=== PATIENT | male | born 1945 | race Caucasian/White ===

== ENCOUNTER 2018-08-23 21:27 | Inpatient (IN) | payer MEDICARE, OTHER ==
[~2018-08-23] VITALS: Ht 190.5 cm; Wt 151.2 kg
[~2018-08-23 21:27] MED LIST changes: -ATOR40TA24 PO; -CALC500T6 PO; -CITA-157 PO; -COLC1TAB5 PO; -CYAN100017 PO; -DOCU-416 PO; -FURO-47 PO; -GABA-492 PO; -GLIP-152 PO; -MAGN27TA6 PO; -METF-452 PO; -MULT-1335 PO; -PRAZ1CAP26 PO; -PRED-420 PO; -SPIR25TA80 PO; -TOPI50TA92 PO; -WARF5TAB23 PO
[2018-08-23] MEDS ORDERED: ACETAMINOPHEN(*)1000 MG/100 ML 100 ML IVPB ONE (21:35)
[2018-08-23] MEDS ORDERED: NS(*) 0.9% 1000 ML BAG 1,000 ML IV ONE ×2 (21:35→22:25)
[2018-08-23] MEDS ORDERED: CEFEPIME HCL 1 GM VIAL IVP ONE ×2 (21:35→21:45)
[2018-08-23] MEDS ORDERED: INSU HUM REG 100 U/ML(ER ONLY) 10 ML VIAL IV ONE (21:40)
[2018-08-23] MEDS ORDERED: ALBUTEROL/IPRATROPIUM 3 ML NEB NEB ONE (21:45)
[2018-08-23 21:46] LABS: PLATELET COUNT, AUTOMATED 248 K/uL (150-450)
[2018-08-23] MEDS ORDERED: ALBUTEROL/IPRATROPIUM 3 ML NEB ONE (21:47)
[2018-08-23] MEDS ORDERED: CEFEPIME HCL 1 GM VIAL ONE (21:48)
[2018-08-23 21:57] LABS: INR 1.91
--- NOTE | 2018-08-23 21:58 | EKG ---
FACILITY: [facility] PATIENT NAME: HUNTER KENNEDY : [id number] MR: [id number] V: [id number] EXAM DATE: ORDERING PHYSICIAN: TRINH SWAN TECHNOLOGIST: LANI Test Reason : SOB Blood Pressure : / mmHG Vent. Rate : 096 BPM Atrial Rate : 096 BPM P-R Int : 172 ms QRS Dur : 100 ms QT Int : 364 ms P-R-T Axes : 014 078 036 degrees QTc Int : 459 ms Sinus rhythm Nonspecific interventricular conduction delay Artifact in several leads - repeat if needed Borderline ECG No previous ECGs available Confirmed by SUZANNE CHUN ([id number]) on 08/23/2018 10:10:13 PM Referred By: Confirmed By:SUZANNE CHUN
--- NOTE | 2018-08-23 21:58 | RADIOLOGY IMAGING REPORT ---
FACILITY: [facility] PATIENT NAME: Reinaldo Workman : 1945 MR: [id number] V: [id number] EXAM DATE: ORDERING PHYSICIAN: TRINH SWAN TECHNOLOGIST: Location: [facility] [place] Patient: Reinaldo Workman : 1945 Visit/Account:[id number] Date of Sevice: 08/23/2018 CHEST SINGLE AP Indication: Shortness of breath.. Comparison: CT chest on 07/01/2017. Findings: Cardiac silhouette is upper limits normal for size and inspiration. The mediastinal silhouette and pu lmonary vessels within normal limits. There appears to be some mild prominent pericardial fat as seen on the CT scan. Scarring seen in the right lower lobe. No focal areas of consolidation. No pneumothorax or pleural effusion. No nodule. Upper abdomen is unremarkable with eventration right hemidiaphragm. No acute bony abnormal ity. IMPRESSION: 1. No acute cardiopulmonary process. Report Dictated By: Daniel Loyola at 08/23/2018 9:52 PM Report E-Signed By: Daniel Loyola at 08/23/2018 9:55 PM WSN:[id number]
[2018-08-23] MEDS ORDERED: IOPAMIDOL 76% 50 ML INFUS BTL 0 ML ONE (22:37)
[2018-08-23] MEDS ORDERED: NS(*) 0.9% 50 ML BAG 0 ML ONE (22:38)
[2018-08-23 23:15] VITALS: BP 111/57
[2018-08-23 23:30] VITALS: BP 115/73
[2018-08-23] MEDS ORDERED: INFLUENZA VIRUS VAC 0.5ML SYR IM ONLY ONE (23:50)
[2018-08-24] VITALS (24 sets, daily range): BP systolic 103–160; BP diastolic 47–84; Ht 190.5 cm; Wt 151.2 kg
--- NOTE | 2018-08-24 00:09 | History & Physical ---
History of Present Illness Chief Complaint "Confused and sleepy" History of Present Illness 72yo male with PMHx significant for type 2 DM, chronic lung disease, tobacco use/abuse, sleep apnea (untreated), DVT/PE, HTN. His reports he has been having increasing cough, dyspnea, "trouble breathing", and confusion over the past several days. He has been noted to have some fever as well. He has not been able to do much for himself recently. He has not been eating/drinking normally. He is still smoking, but "trying to cut down". He was evaluated in the ER and found to be confused, hypoxic, hypercapnic and recommended for admission. He was placed on BiPAP in the ER and has improved with respect to his level of awareness. He is now awake and more alert. He is able to follow some simple commands and answer questions. History Problems: (1) CELESTE (obstructive sleep apnea) Status: Chronic (2) HTN (hypertension) Status: Chronic (3) Type 2 diabetes mellitus Status: Chronic (4) Tobacco dependence Status: Chronic (5) Chronic lung disease Status: Chronic (6) DVT (deep venous thrombosis) Status: Chronic Home Meds Reported Medications Cephalexin Monohydrate (Keflex) 250 Mg Cap, 250 MG PO QID, #20 0 Refills 03/14/11 Colchicine (Colchicine) 0.6 Mg Tab, 0.6 MG PO QDAY, #20 0 Refills 03/14/11 [place]-3 Fatty Acids (Fish Oil) 1 Cap Capsule, 1 CAP PO, 0 Refills 03/14/11 Furosemide (Lasix) 20 Mg Tablet, 20 MG PO QDAY, 0 Refills 03/14/11 Acetaminophen (Acetaminophen Pain Relief) 500 Mg Tablet, 500 MG PO PRN 03/14/11 Warfarin Sod (Coumadin (Or Equiv)) 5 Mg Tab, 7 MG PO 7.5 MG 6 DAYS A WEEK. 5 MG WEDS 03/14/11 Citalopram Hydrobromide (Celexa) 20 Mg Tab, 40 MG PO 1/2 TAB IN MORNING AND EVENING 03/14/11 Lisinopril (Prinivil) 20 Mg Tab, 20 MG PO QDAY, #20 0 Refills 03/14/11 Metformin Hcl (Glucophage) 1,000 Mg Tablet, 1000 MG PO QDAY 8/13/11 Simvastatin (Zocor) 80 Mg Tablet, 40 MG PO QHS 03/14/11 Topiramate (Topamax) 25 Mg Tablet, 50 MG PO BID 2 TABS TWICE DAILY 03/14/11 Allergies: Coded Allergies: Preservative (Verified Allergy, Mild, PRESERATIVE IN PLASMA CAUSES SWELLING AND ITCHING, 08/23/18) Hx Smoking: Yes Smoking Status: Current: Every Day Smoker Caffeine Intake: Coffee Caffeine/Cups Per Day: 3 CUPS/DAY Hx Substance Use Disorder: No History of IV Drug Use: No Review of Systems Constitutional: Fever Neurological: Confusion, Weakness Cardiovascular: No Chest Pain Respiratory: Shortness of Breath, Cough Gastrointestinal: No Nausea, No Vomiting, No Diarrhea Exam Vital Signs Vital Signs Date Time Temp Pulse Resp B/P (MAP) Pulse Ox O2 Delivery O2 Flow Rate FiO2 08/23/18 23:26 86 08/23/18 22:57 14 134/70 (91) 97 08/23/18 22:31 101.2 08/23/18 22:17 Bi-PAP 40.0 08/23/18 21:55 10.0 General Appearance: Awake (answers questions and follows simple commands) Neuro: Other (moves all four extremities) Eyes: PERRLA ENT: Oropharynx Clear, Other (dentures) Neck: Other (short/thick/martinez) Cardiovascular: Regular Rate and Rhythm (distant tones) Respiratory: Other (diminished breath sounds bilaterally with soft expiratory wheeze) Chest: No Tenderness GI: Abd Soft and Non-Tender (obese) Extremities: Warm, Perfused, Edema (1+ both LE/few small excoriations) Medical Decision Making Data Points Result Diagram: 08/23/18213508/23/182135 Item Value Date Time Activated Partial Thromboplast Time 41 seconds H 08/23/182135 Prothromb Time International Ratio 1.91 08/23/182135 Prothrombin Time 22.2 seconds H 08/23/182135 Influenza Virus Type B (PCR) Negative 08/23/182212 Influenza Virus Type A (PCR) Negative 08/23/182212 Acetone, Qualitative Negative 08/23/182135 Urine Mucus None /HPF 08/23/182199 Urine Hyaline Casts Few /LPF 08/23/182199 Urine Bacteria Negative /HPF 08/23/182199 Urine Squamous Epithelial Cells Few /LPF 08/23/182199 Urine WBC None /HPF 08/23/182199 Urine RBC 1 /HPF 08/23/182199 Urine Leukocyte Esterase Negative 08/23/182199 Urine Urobilinogen Negative mg/dL 08/23/182199 Urine Bilirubin Negative 08/23/182199 Urine Nitrite Negative 08/23/182199 Urine Blood Negative 08/23/182199 Urine Ketones Negative mg/dL 08/23/182199 Urine Glucose (UA) 50 mg/dL H 08/23/182199 Urine Protein Negative mg/dL 08/23/182199 Urine Specific [place] 1.012 08/23/182199 Urine pH 6.0 pH 08/23/182199 Urine Clarity Clear 08/23/182199 Urine Color Yellow 08/23/182199 Troponin I < 0.012 ng/ml 08/23/182135 Albumin 3.8 g/dl 08/23/182135 Total Protein 7.0 g/dl 08/23/182135 Alkaline Phosphatase 88 U/L 08/23/18 2136 Alanine Aminotransferase (ALT/SGPT) 29 U/L 08/23/18 2136 Total Bilirubin 0.2 mg/dl 08/23/18 2136 Aspartate Amino Transf (AST/SGOT) 18 U/L 08/23/18 213 Calcium Level 9.2 mg/dl 08/23/186 Lactate 1.2 mmol/L 08/23/182135 Blood Gas Puncture Site Right radial 08/23/182149 Blood Gas Patient Temperature 98.7 DEGREES 08/23/182149 Arterial Blood pH 7.25 L 08/23/182149 Arterial Blood Partial Pressure CO2 70 mmHg *H 08/23/182149 Arterial Blood Partial Pressure O2 123 mmHg *H 08/23/182149 Arterial Blood HCO3 31 mmol/L H 08/23/182149 Arterial Blood Oxygen Saturation 98 % 08/23/182149 Arterial Blood Base Excess 4.0 mmol/L 08/23/182149 Rey Test Acceptable 08/23/182149 Oxygen Liters/Minute 10 l 08/23/182149 EKG / Imaging EKG Interpretation PATIENT NAME: HUNTER KENNEDY : [id number] MR: [id number] V: [id number] EXAM DATE: ORDERING PHYSICIAN: TRINH SWAN TECHNOLOGIST: LANI Test Reason : SOB Blood Pressure : / mmHG Vent. Rate : 096 BPM Atrial Rate : 096 BPM P-R Int : 172 ms QRS Dur : 100 ms QT Int : 364 ms P-R-T Axes : 014 078 036 degrees QTc Int : 459 ms Sinus rhythm Nonspecific interventricular conduction delay Artifact in several leads - repeat if needed Borderline ECG No previous ECGs available Confirmed by SUZANNE CHUN ([id number]) on 08/23/2018 10:10:13 PM Referred By: Confirmed By:SUZANNE CHUN Imaging PATIENT NAME: Hunter Kennedy : 1945 MR: [id number] V: [id number] EXAM DATE: ORDERING PHYSICIAN: TRINH SWAN TECHNOLOGIST: Location: [facility] Patient: Hunter Kennedy : 1945 Visit/Account:[id number] Date of Sevice: 08/23/2018 CHEST SINGLE AP Indication: Shortness of breath.. Comparison: CT chest on 07/01/2017. Findings: Cardiac silhouette is upper limits normal for size and inspiration. The mediastinal silhouette and pulmonary vessels within normal limits. There appears to be some mild prominent pericardial fat as seen on the CT scan. Scarring seen in the right lower lobe. No focal areas of consolidation. No pneumothorax or pleural effusion. No nodule. Upper abdomen is unremarkable with eventration right hemidiaphragm. No acute bony abnormality. IMPRESSION: 1. No acute cardiopulmonary process. Report Dictated By: Daniel Loyola at 08/23/2018 9:52 PM Report E-Signed By: Daniel Loyola at 08/23/2018 9:55 PM WSN:[id number] Assessment and Plan Problems: (1) Hypercapnic respiratory failure Status: Acute Assessment & Plan: He most likely has fairly significant CELESTE/hypoventilation syndrome with acute hypercapnic respiratory failure. He has responded well to the BiPAP thus far. Will admit to the ICU for further evaluation and treatment. His CXR is of poor quality, but no obvious infiltrate was noted. He has had some fever with borderline elevated WBC count. Will continue the IV cefepime for the possibility of an acute respiratory infection. Will continue BiPAP and watch ABGs. Continue respiratory treatments. We also discussed need for tobacco cessation. (2) DVT (deep venous thrombosis) Status: Chronic Assessment & Plan: He is on chronic warfarin therapy. [facility] to get [facility] dosage and continue his usual regimen. Watch INR. (3) Type 2 diabetes mellitus Status: Chronic Assessment & Plan: He has been managed with metformin. Will hold it for now, monitor glucoses, and use SSI as needed. (4) CELESTE (obstructive sleep apnea) Status: Chronic Assessment & Plan: It sounds like he was evaluated and recommended to use CPAP/BiPAP, but he has never used it. I discussed the importance of appropriately treating his sleep apnea. Will see if can get records. (5) Tobacco dependence Status: Chronic Assessment & Plan: Discussed need to stop smoking with the patient and his . (6) HTN (hypertension) Status: Chronic Assessment & Plan: He has been managed with lisinopril. Will hold it for now, watch BPs, and resume medication as needed. Copies to: CORNEL DELGADO DO ; Venous Thromboembolism Antithrombotics Is Pt On Any Antithrombotics?: Yes Exam Sepsis Risk: No Definite Risk Problem Qualifiers (1) Hypercapnic respiratory failure: Chronicity: acute on chronic Qualified Codes: J96.22 - Acute and chronic respiratory failure with hypercapnia SUZANNE CHUN MD Aug 24, 2018 00:09
[2018-08-24] MEDS: ALBUTEROL/IPRATROPIUM 3 ML NEB NEB SCH ×5 (00:33→23:32)
[2018-08-24] MEDS: methylPREDNIS SUCC 125 MG/2ML IVP SCH ×3 (01:47→20:23)
[2018-08-24] MEDS: INSULIN HUM LISPRO 100 UN/ML 3 ML VIAL SUBQ PRN ×5 (01:47→20:27)
[2018-08-24 05:16] LABS: PLATELET COUNT, AUTOMATED 216 K/uL (150-450)
[2018-08-24 05:18] LABS: INR 1.74
--- NOTE | 2018-08-24 07:31 | RADIOLOGY IMAGING REPORT ---
FACILITY: [facility] - [place] PATIENT NAME: Reinaldo Workman : 1945 MR: [id number] V: [id number] EXAM DATE: ORDERING PHYSICIAN: SUZANNE CHUN TECHNOLOGIST: Location: [facility] Patient: Reinaldo Workman : 1945 Visit/Account:[id number] Date of Sevice: 08/24/2018 EXAMINATION: Portable AP Chest 08/24/2018 7:00 AM HISTORY: respiratory failure COMPARISON: 08/23/2018 FINDINGS: Cardiomediastinal contours: Stable heart size. Atherosclerotic aorta. Likely granulomatous hilar calc ifications. Lungs and pleura: Stable vascular and reticular markings. Stable thickening along the right minor fis sure. No definite effusion. Bones/soft tissues: Stable elevation right hemidiaphragm. Cardiac leads are present. IMPRESSION: Essentially stable portable chest. Report Dictated By: Anish Styles MD at 08/24/2018 7:26 AM Report E-Signed By: Anish Styles MD at 08/24/2018 7:27 AM WSN:[id number]
[2018-08-24] MEDS: NS(*) 0.9% 1000 ML BAG 1,000 ML IV PRN (08:44)
[2018-08-24] MEDS: CEFEPIME HCL 2 GM VIAL IVP SCH ×2 (08:59→20:22)
[2018-08-24] MEDS ORDERED: ENOXAPARIN 40 MG/0.4ML SYR SC SCH (09:00)
[2018-08-24] MEDS ORDERED: ATOR40TA24 PO (10:00)
[2018-08-24] MEDS ORDERED: FURO-47 PO (10:00)
[2018-08-24] MEDS ORDERED: COLC1TAB5 PO (10:00)
[2018-08-24] MEDS ORDERED: MULT-1335 PO (10:00)
[2018-08-24] MEDS ORDERED: PRAZ1CAP26 PO ×2 (10:00)
[2018-08-24] MEDS ORDERED: METF-452 PO (10:00)
[2018-08-24] MEDS ORDERED: SPIR25TA80 PO (10:00)
[2018-08-24] MEDS ORDERED: GLIP-152 PO (10:00)
[2018-08-24] MEDS ORDERED: GABA-492 PO (10:00)
[2018-08-24] MEDS ORDERED: WARF5TAB23 PO ×2 (10:00)
[2018-08-24] MEDS ORDERED: DOCU-416 PO (10:00)
[2018-08-24] MEDS ORDERED: MAGN27TA6 PO (10:00)
[2018-08-24] MEDS ORDERED: CALC500T6 PO (10:00)
[2018-08-24] MEDS ORDERED: CITA-157 PO (10:00)
[2018-08-24] MEDS ORDERED: CYAN100017 PO (10:00)
[2018-08-24] MEDS ORDERED: TOPI50TA92 PO (10:06)
[2018-08-24] MEDS: WARFARIN SOD 7.5 MG TAB PO SCH (15:16)
[2018-08-25] VITALS (20 sets, daily range): BP systolic 109–137; BP diastolic 55–111
--- NOTE | 2018-08-25 02:52 | ER Report ---
History and Physical Time Seen By MD: 21:15 Hx. of Stated Complaint: pm, ALOC since about 3pm today, temp of 102.5 on ambulance, breathing treatment, low 80's o2 at time of ems arrival. HPI/ROS CHIEF COMPLAINT: Altered level of consciousness since approximately 1500 HISTORY OF PRESENT ILLNESS: Patient is a 72-year-old male here with complaints of altered mental status since approximately 1500. Patient was also noted to be febrile at 102.5. Patient was also noted to have low oxygen saturations in the low 80s at time of EMS evaluation. Patient was reportedly complaining of fatigue, subjective fevers and past several days. He does have a history significant for chronic lung disease, diabetes. REVIEW OF SYSTEMS: Constitutional: + fever, chills. Eyes: No discharge. ENT: No sore throat. Cardiovascular: No chest pain, no palpitations. Respiratory: + cough, + shortness of breath. Gastrointestinal: No abdominal pain, no vomiting. Genitourinary: No hematuria. Musculoskeletal: No back pain. Skin: No rashes. Neurological: + Confusion, somnolence Allergies: Coded Allergies: Preservative (Verified Allergy, Mild, PRESERATIVE IN PLASMA CAUSES SWELLING AND ITCHING, 08/23/18) Home Meds Reported Medications Topiramate (TOPIRAMATE) 50 Mg Tablet, 50 MG PO DAILY 08/24/18 Multivitamin With Minerals (MULTIPLE VITAMIN) 1 Each Tablet, 1 EACH PO DAILY, TAB 08/24/18 Calcium Carbonate (CALCIUM) Unknown Strength Tablet, PO DAILY 08/24/18 Magnesium Amino Acid Chelate (MAGNESIUM) Unknown Strength Tablet, PO DAILY 08/24/18 Cyanocobalamin (Vitamin B-12) (B-12) Unknown Strength Tablet, PO DAILY 08/24/18 Prazosin Hcl (PRAZOSIN HCL) 1 Mg Capsule, 3 MG PO QHS, CAPSULE Take 1 mg by mouth in the morning and 3 mg by mouth in the evening 08/24/18 Warfarin Sodium (WARFARIN SODIUM) 5 Mg Tablet, 10 MG PO SuTuSa, TAB 08/24/18 Warfarin Sodium (WARFARIN SODIUM) 5 Mg Tablet, 7.5 MG PO MoWeThFr, TAB Take 10 mg on Tues, Sat, Sun, and 7.5mg the rest of the week 08/24/18 Furosemide (FUROSEMIDE) 40 Mg Tablet, 1 TAB PO DAILY, TAB 08/24/18 Colchicine/Probenecid (PROBENECID-COLCHICINE TABS) 1 Each Tablet, 1 EACH PO QHS 08/24/18 Atorvastatin Calcium (LIPITOR) 40 Mg Tablet, 1 TAB PO QHS, TAB 08/24/18 Docusate Sodium (COLACE) 100 Mg Capsule, 100 MG PO BID, CAPSULE 08/24/18 Citalopram Hydrobromide (CELEXA) 40 Mg Tablet, 40 MG PO QDAY, TAB 08/24/18 Spironolactone (SPIRONOLACTONE) 25 Mg Tablet, 25 MG PO QAM, TAB 08/24/18 Prazosin Hcl (PRAZOSIN HCL) 1 Mg Capsule, 1 MG PO QAM, CAPSULE Take 1 mg by mouth in the morning and 3 mg by mouth in the evening 08/24/18 Metformin Hcl (METFORMIN HCL) 1,000 Mg Tablet, 1 TAB PO BID, TAB 08/24/18 Gabapentin (NEURONTIN) 400 Mg Capsule, 800 MG PO BID, CAPSULE 08/24/18 Glipizide (GLIPIZIDE) 5 Mg Tablet, 2.5 MG PO QAM 08/24/18 Discontinued Reported Medications Cephalexin Monohydrate (Keflex) 250 Mg Cap, 250 MG PO QID, #20 0 Refills 03/14/11 Colchicine (Colchicine) 0.6 Mg Tab, 0.6 MG PO QDAY, #20 0 Refills 03/14/11 [place]-3 Fatty Acids (Fish Oil) 1 Cap Capsule, 1 CAP PO, 0 Refills 03/14/11 Furosemide (Lasix) 20 Mg Tablet, 20 MG PO QDAY, 0 Refills 03/14/11 Acetaminophen (Acetaminophen Pain Relief) 500 Mg Tablet, 500 MG PO PRN 03/14/11 Warfarin Sod (Coumadin (Or Equiv)) 5 Mg Tab, 7 MG PO 7.5 MG 6 DAYS A WEEK. 5 MG WEDS 03/14/11 Citalopram Hydrobromide (Celexa) 20 Mg Tab, 40 MG PO 1/2 TAB IN MORNING AND EVENING 03/14/11 Lisinopril (Prinivil) 20 Mg Tab, 20 MG PO QDAY, #20 0 Refills 03/14/11 Metformin Hcl (Glucophage) 1,000 Mg Tablet, 1000 MG PO QDAY 03/14/11 Simvastatin (Zocor) 80 Mg Tablet, 40 MG PO QHS 03/14/11 Topiramate (Topamax) 25 Mg Tablet, 50 MG PO BID 2 TABS TWICE DAILY 03/14/11 Hx Smoking: Yes Smoking Status: Current: Every Day Smoker Constitutional Vital Sign - Last 24 Hours 08/23/18 08/23/18 08/23/18 08/23/18 21:26 21:30 21:32 21:37 Temp 98.7 Pulse 96 99 97 Resp B/P (MAP) 144/77 144/77 (99) Pulse Ox 75 76 96 O2 Delivery Nasal Cannula O2 Flow Rate 4.0 08/23/18 08/23/18 08/23/18 08/23/18 21:42 21:44 21:47 21:52 Pulse 95 92 96 Resp 21 19 15 B/P (MAP) 140/65 (90) Pulse Ox 97 97 96 08/23/18 08/23/18 08/23/18 08/23/18 21:55 21:55 21:57 22:00 Pulse 89 90 Resp 22 18 B/P (MAP) 132/73 (92) Pulse Ox 97 96 O2 Delivery Oxy Mask O2 Flow Rate 10.0 08/23/18 08/23/18 08/23/18 08/23/18 22:02 22:12 22:15 22:16 Temp 101.2 Pulse 97 97 Resp 20 17 Pulse Ox 92 94 FiO2 40.0 08/23/18 08/23/18 08/23/18 08/23/18 22:17 22:17 22:22 22:27 Pulse 93 93 96 Resp 17 14 12 Pulse Ox 90 90 95 96 O2 Delivery Bi-PAP FiO2 40.0 08/23/18 08/23/18 08/23/18 08/23/18 22:31 22:32 22:37 22:42 Temp 101.2 Pulse 91 93 91 Resp 15 15 12 Pulse Ox 96 96 96 08/23/18 22:45 B/P (MAP) 123/66 (85) Physical Exam General Appearance: + Confusion, somnolence Eyes: Pupils equal and round no pallor or injection. ENT, Mouth: Mucous membranes are moist. Respiratory: + Diminished lung sounds bilaterally, tachypnea Cardiovascular: Regular rate and rhythm. Gastrointestinal: Abdomen is soft and non tender, no masses, bowel sounds normal. Neurological: Somnolence, moving all extremities spontaneously Skin: Warm and dry, no rashes. Musculoskeletal: Neck is supple non tender. Extremities are nontender, nonswollen and have full range of motion. DIFFERENTIAL DIAGNOSIS: After history and physical exam differential diagnosis was considered for altered mental status including but not limited to hypoglycemia, infectious process, electrolyte abnormality, head injury and intoxicants. Medical Decision Making Data Points Result Diagram: 08/24/18 0459 08/24/18 0459 Laboratory Hematology Test 08/23/18 21:36 08/23/18 22:00 08/23/18 22:13 Activated Partial Thromboplast Time 41 seconds (23-35) Osmolality 296 mOSM/K (275-295) Lactate 1.2 mmol/L (0.7-2.1) Troponin I < 0.012 ng/ml Acetone, Qualitative Negative Urine Color Yellow Urine Clarity Clear Urine pH 6.0 pH (4.8-9.5) Urine Specific [place] 1.012 Urine Protein Negative mg/dL (NEGATIVE) Urine Glucose (UA) 50 mg/dL (NEGATIVE) Urine Ketones Negative mg/dL (NEGATIVE) Urine Blood Negative (NEGATIVE) Urine Nitrite Negative (NEGATIVE) Urine Bilirubin Negative (NEGATIVE) Urine Urobilinogen Negative mg/dL (0.2-1.9) Urine Leukocyte Esterase Negative (NEGATIVE) Urine RBC 1 /HPF (0-2/HPF) Urine WBC None /HPF (0-5/HPF) Urine Squamous Epithelial Cells Few /LPF (NONE-FEW) Urine Bacteria Negative /HPF (NONE-FEW) Urine Hyaline Casts Few /LPF (NONE-FEW) Urine Mucus None /HPF (NONE-FEW) Influenza Virus Type A (PCR) Negative (NEGATIVE) Influenza Virus Type B (PCR) Negative (NEGATIVE) Chemistry Test 08/23/18 21:36 08/23/18 22:00 08/23/18 22:13 Activated Partial Thromboplast Time 41 seconds (23-35) Osmolality 296 mOSM/K (275-295) Lactate 1.2 mmol/L (0.7-2.1) Troponin I < 0.012 ng/ml Acetone, Qualitative Negative Urine Color Yellow Urine Clarity Clear Urine pH 6.0 pH (4.8-9.5) Urine Specific [place] 1.012 Urine Protein Negative mg/dL (NEGATIVE) Urine Glucose (UA) 50 mg/dL (NEGATIVE) Urine Ketones Negative mg/dL (NEGATIVE) Urine Blood Negative (NEGATIVE) Urine Nitrite Negative (NEGATIVE) Urine Bilirubin Negative (NEGATIVE) Urine Urobilinogen Negative mg/dL (0.2-1.9) Urine Leukocyte Esterase Negative (NEGATIVE) Urine RBC 1 /HPF (0-2/HPF) Urine WBC None /HPF (0-5/HPF) Urine Squamous Epithelial Cells Few /LPF (NONE-FEW) Urine Bacteria Negative /HPF (NONE-FEW) Urine Hyaline Casts Few /LPF (NONE-FEW) Urine Mucus None /HPF (NONE-FEW) Influenza Virus Type A (PCR) Negative (NEGATIVE) Influenza Virus Type B (PCR) Negative (NEGATIVE) Coagulation Test 08/23/18 21:36 Activated Partial Thromboplast Time 41 seconds Toxicology Test 08/23/18 21:36 Acetone, Qualitative Negative Urinalysis Test 08/23/18 22:00 Urine Color Yellow Urine Clarity Clear Urine pH 6.0 pH (4.8-9.5) Urine Specific [place] 1.012 Urine Protein Negative mg/dL (NEGATIVE) Urine Glucose (UA) 50 mg/dL (NEGATIVE) Urine Ketones Negative mg/dL (NEGATIVE) Urine Blood Negative (NEGATIVE) Urine Nitrite Negative (NEGATIVE) Urine Bilirubin Negative (NEGATIVE) Urine Urobilinogen Negative mg/dL (0.2-1.9) Urine Leukocyte Esterase Negative (NEGATIVE) Urine RBC 1 /HPF (0-2/HPF) Urine WBC None /HPF (0-5/HPF) Urine Squamous Epithelial Cells Few /LPF (NONE-FEW) Urine Bacteria Negative /HPF (NONE-FEW) Urine Hyaline Casts Few /LPF (NONE-FEW) Urine Mucus None /HPF (NONE-FEW) Microbiology Microbiology Date/Time Source Procedure Growth Status 08/23/18 21:54 Blood Peripheral Draw Blood Culture - Preliminary NO GROWTH AFTER 1 DAY, REINCUBATED Resulted 08/23/18 21:36 Blood Peripheral Draw Blood Culture - Preliminary NO GROWTH AFTER 1 DAY, REINCUBATED Resulted 08/23/18 22:00 Clean Catch Midstream Ur Urine Culture - Preliminary No growth Resulted EKG/Imaging EKG Interpretation Test Reason : SOB Blood Pressure : / mmHG Vent. Rate : 096 BPM Atrial Rate : 096 BPM P-R Int : 172 ms QRS Dur : 100 ms QT Int : 364 ms P-R-T Axes : 014 078 036 degrees QTc Int : 459 ms Sinus rhythm Nonspecific interventricular conduction delay Artifact in several leads - repeat if needed Borderline ECG No previous ECGs available Confirmed by SUZANNE GRIMALDO ([id number]) on 08/23/2018 10:10:13 PM Referred By: Confirmed By:SUZANNE GRIMALDO Imaging PATIENT NAME: Reinaldo Workman : 1945 MR: [id number] V: [id number] EXAM DATE: ORDERING PHYSICIAN: TRINH SWAN TECHNOLOGIST: Location: [facility] Patient: Reinaldo Workman : 1945 Visit/Account:[id number] Date of Sevice: 08/23/2018 CHEST SINGLE AP Indication: Shortness of breath.. Comparison: CT chest on 07/01/2017. Findings: Cardiac silhouette is upper limits normal for size and inspiration. The mediastinal silhouette and pulmonary vessels within normal limits. There appears to be some mild prominent pericardial fat as seen on the CT scan. Scarring seen in the right lower lobe. No focal areas of consolidation. No pneumothorax or pleural effusion. No nodule. Upper abdomen is unremarkable with eventration right hemidiaphragm. No acute bony abnormality. IMPRESSION: 1. No acute cardiopulmonary process. ED Course/Re-evaluation ED Course Patient is a 72-year-old male here with complaints of altered mental status, f nel, or respiratory failure in the setting of chronic lung disease. Patient was also found to have hyperglycemia at time of evaluation. Patient was given IV fluid bolus, cefepime for antimicrobial coverage, insulin due to hyperglycemia, Tylenol for fevers. Labs were significant for hypercapnia on blood gas. Patient was placed on BiPAP and had some improvement of altered mental status. I discussed the patient with Dr. Derick Grimaldo who accepted the patient to hospitalist service for further treatment and care. Decision to Disposition Date: Aug 23, 2018 Decision to Disposition Time: 23:00 Depart Departure Latest Vital Signs Vital Signs Date Time Temp Pulse Resp B/P (MAP) Pulse Ox O2 Delivery O2 Flow Rate FiO2 08/23/18 22:45 123/66 (85) 08/23/18 22:42 91 12 96 08/23/18 22:31 101.2 08/23/18 22:17 Bi-PAP 40.0 08/23/18 21:55 10.0 Impression: Primary Impression: Chronic lung disease Additional Impressions: Hypercapnic respiratory failure Type 2 diabetes mellitus Condition: Improved Disposition: Admitted from ER Referrals: CORNEL DELGADO DO (PCP) Departure Forms: Medications Reconciliation, Patient Portal Information, ER Transition Record Problem Qualifiers Additional Impressions: Hypercapnic respiratory failure Chronicity: acute on chronic Qualified Codes: J96.22 - Acute and chronic respiratory failure with hypercapnia TRINH SWAN DO Aug 25, 2018 02:52
[2018-08-25] MEDS: NS(*) 0.9% 1000 ML BAG 1,000 ML IV PRN (03:10)
[2018-08-25 05:35] LABS: PLATELET COUNT, AUTOMATED 219 K/uL (150-450)
[2018-08-25 05:39] LABS: INR 1.55
[2018-08-25] MEDS: ALBUTEROL/IPRATROPIUM 3 ML NEB NEB SCH ×4 (05:51→23:38)
[2018-08-25] MEDS: INSULIN HUM LISPRO 100 UN/ML 3 ML VIAL SUBQ PRN ×4 (08:09→20:25)
[2018-08-25] MEDS: metFORMIN HCL 500 MG TAB PO SCH ×2 (08:59→20:17)
[2018-08-25] MEDS: CEFEPIME HCL 2 GM VIAL IVP SCH ×2 (08:59→20:17)
[2018-08-25] MEDS: methylPREDNIS SUCC 125 MG/2ML IVP SCH ×2 (09:00→20:17)
[2018-08-25] MEDS: FUROSEMIDE 40 MG TAB PO SCH (09:00)
[2018-08-25] MEDS: glipiZIDE 5 MG TAB PO SCH (09:08)
[2018-08-25] MEDS: PRAZOSIN HCL 1 MG CAP PO SCH ×2 (09:08→20:17)
--- NOTE | 2018-08-25 09:21 | Hospitalist Progress Note ---
Subjective Progress Notes Subjective This patient was admitted for respiratory failure. He had no acute events overnight. Patient Complains of: Cardiovascular: No: Chest Pain Respiratory: No: Shortness of Breath Physical Exam Vital Signs Date Time Temp Pulse Resp B/P (MAP) Pulse Ox O2 Delivery O2 Flow Rate FiO2 08/25/18 06:00 98.2 62 15 130/76 (94) 94 High-Flow Nasal Cannula 08/25/18 05:00 6.0 08/25/18 04:00 45.0 Intake and Output 08/25/18 07:00 Intake Total 3075 ml Output Total 1475 ml Balance 1600 ml Intake Oral 1220 ml IV Total 1855 ml Output Urine Total 1475 ml Cardiovascular: Regular Rate and Rhythm Respiratory: Clear to Auscultation Extremities: Edema Result Diagram: 08/25/1851308/25/18513 Assessment and Plan Problems: (1) Hypercapnic respiratory failure Status: Acute Assessment & Plan: He most likely has fairly significant CELESTE/hypoventilation syndrome with acute hypercapnic respiratory failure. He has responded well to the BiPAP. His chest x-ray was negative for infiltrate. He was started on empiric treatment with IV steroids and cefepime, but these can likely be stopped if his cultures remain negative. (2) DVT (deep venous thrombosis) Status: Chronic Assessment & Plan: He is on chronic warfarin therapy. Daily INR monitoring is ordered. He is below therapeutic level, but refused a Lovenox bridge. (3) Type 2 diabetes mellitus Status: Chronic Assessment & Plan: He has been managed with metformin and glipizide. Those medications have been restarted today. He is also on sliding scale level #2. (4) CELESTE (obstructive sleep apnea) Status: Chronic Assessment & Plan: It sounds like he was evaluated and recommended to use CPAP/BiPAP, but he has never used it. (5) Tobacco dependence Status: Chronic Assessment & Plan: Discussed need to stop smoking with the patient and his . (6) HTN (hypertension) Status: Chronic Assessment & Plan: He has been managed with lisinopril, which is currently on hold. (7) Seizure disorder Assessment & Plan: He is on chronic treatment with Topamax, which has been restarted. Exam Sepsis Risk: No Definite Risk Problem Qualifiers (1) Hypercapnic respiratory failure: Chronicity: acute on chronic Qualified Codes: J96.22 - Acute and chronic respiratory failure with hypercapnia MYA DEL RIO DO Aug 25, 2018 09:21
[2018-08-25] MEDS: TOPIRAMATE 25 MG TAB PO SCH (09:30)
--- NOTE | 2018-08-25 11:44 | NUR ---
Physical Therapy Impression PT/OT co-eval completed for pt safety. Nursing available to assist as well. Pt agreeable to transfer to recliner at bedside. 2 person Min/Mod assist to use UE's to leverage himself to edge of bed. Pt then only required CGA/SBA with bariatric walker to complete sit to stand and pivot step to bedside chair. Pt declined any further activity and sats were in safe range throughout. Pt notes that he is agreeable to remain up in chair for a period of time and return to bed with nursing assist when appropriate. Physical Therapy Goals 1. Pt to be Mod indep/SBA for bed mobility and supine to/from sit transfers 2. Pt to be Mod indep/SBA for sit to/from stand transfers with least restrictive device 3. Pt to ambulate x 100' with least restrictive device and SBA/CGA with VS in safe range throughout. Patient's Goals
[2018-08-25] MEDS: WARFARIN SOD 7.5 MG TAB PO SCH (13:04)
--- NOTE | 2018-08-25 13:19 | NUR ---
Occupational Therapy Impression OT evaluation completed with PT. Pt. would benefit from OT services 5x/week to increase independence in ADL functioning. OT recommending HH care services upon d/c. Pt. would also benefit from [facility] Pulmonary Rehab. Occupational Therapy Goals 1. Pt. to perform dressing activities with Min A. 2. Pt. to perform showering activities with Min A. 3. Pt. to perform toileting activities with I. 4. Pt. to perform grooming activities with I. Patient's Goal
[2018-08-25] MEDS: ACETAMINOPHEN 500 MG TAB PO PRN (21:53)
[2018-08-26] VITALS (9 sets, daily range): BP systolic 105–142; BP diastolic 32–85
[2018-08-26] MEDS: ALBUTEROL/IPRATROPIUM 3 ML NEB NEB SCH ×4 (05:22→23:51)
[2018-08-26 06:19] LABS: INR 1.42
[2018-08-26 06:42] LABS: PLATELET COUNT, AUTOMATED 241 K/uL (150-450)
[2018-08-26] MEDS ORDERED: GABAPENTIN 100 MG CAP PO SCH (09:00)
[2018-08-26] MEDS: ENOXAPARIN 40 MG/0.4ML SYR SC SCH (09:36)
[2018-08-26] MEDS: DOCUSATE SODIUM 100 MG CAP PO SCH ×2 (09:37→20:23)
[2018-08-26] MEDS: CITALOPRAM HYDROBROM 20 MG TAB PO SCH (09:37)
[2018-08-26] MEDS: INSULIN HUM LISPRO 100 UN/ML 3 ML VIAL SUBQ PRN ×4 (09:37→20:26)
[2018-08-26] MEDS: metFORMIN HCL 500 MG TAB PO SCH ×2 (09:37→16:47)
[2018-08-26] MEDS: FUROSEMIDE 40 MG TAB PO SCH (09:37)
[2018-08-26] MEDS: PRAZOSIN HCL 1 MG CAP PO SCH ×2 (09:38→20:23)
[2018-08-26] MEDS: TOPIRAMATE 25 MG TAB PO SCH (09:38)
[2018-08-26] MEDS: glipiZIDE 5 MG TAB PO SCH (09:38)
[2018-08-26] MEDS: methylPREDNIS SUCC 125 MG/2ML IVP SCH ×2 (09:38→20:26)
[2018-08-26] MEDS: ACETAMINOPHEN 500 MG TAB PO PRN ×2 (10:04→18:36)
[2018-08-26] MEDS: WARFARIN SOD 7.5 MG TAB PO SCH (12:43)
--- NOTE | 2018-08-26 13:15 | NUR ---
Pt transferred to room 2274 via rolling chair with all belongings. Report given to Rosa Isela PARKER.
--- NOTE | 2018-08-26 14:06 | Hospitalist Progress Note ---
Subjective Progress Notes Subjective The patient denies new complaints. He states he is feeling much better. Nursing notes he has been very compliant with his BiPAP. Physical Exam Vital Signs Date Time Temp Pulse Resp B/P (MAP) Pulse Ox O2 Delivery O2 Flow Rate FiO2 08/26/18 12:00 70 16 133/85 (101) 94 High-Flow Nasal Cannula 3.0 08/26/18 10:00 96.6 08/26/18 08:00 40.0 Intake and Output 08/26/18 07:00 Intake Total 700 ml Output Total 3000 ml Balance -2300 ml Intake Oral 700 ml Output Urine Total 3000 ml General Appearance: Alert, Awake, No Acute Distress Neuro: No Gross deficits Cardiovascular: Regular Rate and Rhythm Respiratory: Other (Decreased BS throughout with mild expiratory wheezes only with forced expiration (cough) bilaterally.) GI: Soft and Non-Tender Extremities: Warm, Perfused Psych: Appropriate Mood & Affect Result Diagram: 08/26/1852508/26/18525 Assessment and Plan Problems: (1) Hypercapnic respiratory failure Status: Acute Assessment & Plan: He most likely has fairly significant CELESTE/hypoventilation syndrome with acute hypercapnic respiratory failure. He has responded well to the BiPAP. His chest x-ray was negative for infiltrate. He was started on empiric treatment with IV steroids and cefepime. Will DC cefepime today and continue to wean steroids as his wheezing has improved. His ABG shows a pH of 7.38 today with pCO2 of 52 which is likely his baseline. Will transfer to the medical floor today. PT/OT have been consulted. (2) DVT (deep venous thrombosis) Status: Chronic Assessment & Plan: He is on chronic warfarin therapy. Daily INR monitoring is ordered. He is below therapeutic level, but refused a Lovenox bridge. (3) Type 2 diabetes mellitus Status: Chronic Assessment & Plan: He has been managed with metformin and glipizide. Those medications were restarted 08/24/18. He is also on sliding scale level #2. (4) CELESTE (obstructive sleep apnea) Status: Chronic Assessment & Plan: [facility], but he has never used it. He is tolerating BiPAP well here at 18/7. Will need to continue on BiPAP at discharge. Will have the TCN evaluate how to best get this accomplished. (5) Tobacco dependence Status: Chronic Assessment & Plan: Discussed need to stop smoking with the patient and his . (6) HTN (hypertension) Status: Chronic Assessment & Plan: He has been managed with lisinopril (not on med rec), which is currently on hold. (7) Seizure disorder Assessment & Plan: He is on chronic treatment with Topamax, which has been restarted. Time Spent on Plan of Care: < 30 min Exam Sepsis Risk: No Definite Risk Problem Qualifiers (1) Hypercapnic respiratory failure: Chronicity: acute on chronic Qualified Codes: J96.22 - Acute and chronic respiratory failure with hypercapnia BERNADETTE CHUN MD Aug 26, 2018 14:06
--- NOTE | 2018-08-26 14:29 | NUR ---
Physical Therapy Impression PT/OT co-treat for pt safety and time split for billing purposes. Pt notes that B) knee pain is his primary limiting factor. Pt initially ambulated 10' to W/C and then self propelled W/C into the hallway. Pt was encouraged to then ambulate back into room x 30' and was able to complete this, in addition to up/down a small platform step with use of rail, to simulate the threshold to enter his doorway after his ramp to access home. O2 on 3 L/min at rest and increased to 4L/min with therapy session for increased exertion. Physical Therapy Goals 1. Pt to be Mod indep/SBA for bed mobility and supine to/from sit transfers 2. Pt to be Mod indep/SBA for sit to/from stand transfers with least restrictive device 3. Pt to ambulate x 100' with least restrictive device and SBA/CGA with VS in safe range throughout. Patient's Goals
--- NOTE | 2018-08-26 14:53 | NUR ---
Occupational Therapy Impression SBA sit<>stands. CGA ambulation x25ft with RW. Mod (I) self-propelling w/c x25ft. SBA sit to supine. Pt declining further ADLs. SpO2 >94% on 4L. Rec HH upon discharge. Occupational Therapy Goals 1. Pt. to perform dressing activities with Min A. 2. Pt. to perform showering activities with Min A. 3. Pt. to perform toileting activities with I. 4. Pt. to perform grooming activities with I. Patient's Goal
--- NOTE | 2018-08-26 17:00 | Antimicrobial Stewardship ---
Antimicrobial Stewardship Empiricly appropriate: Yes (Cefepime ) Comment 72 yo M with PMH of T2DM, chronic lung disease, tobacco use, sleep apnea, DVT/PE and HTN who presented with cough and dyspnea and confusion. Some fevers, noted to be hypoxic, hypercapnic and admitted to the ICU and placed on BIPAP. Started on Cefepime empirically. Several chest xrays have not shown infiltrates. Thought to be more viral, recommend stopping antibiotics at this t luis antonio. Brianna Lyle, PharmD, OP BRIANNA LYLE Aug 26, 2018 17:00
[2018-08-26] MEDS: GABAPENTIN(*) 300 MG CAP 600 MG, GABAPENTIN(*) 100 MG CAP 200 MG PO SCH (20:23)
[2018-08-26] MEDS ORDERED: ATORVASTATIN 40 MG TAB PO SCH (21:00)
[2018-08-27 04:37] VITALS: BP 135/85
[2018-08-27] MEDS: ACETAMINOPHEN 500 MG TAB PO PRN (04:48)
[2018-08-27] MEDS: ALBUTEROL/IPRATROPIUM 3 ML NEB NEB SCH ×2 (05:23→12:41)
[2018-08-27 06:06] LABS: INR 1.62
[2018-08-27 06:13] LABS: PLATELET COUNT, AUTOMATED 247 K/uL (150-450)
[2018-08-27] MEDS: INSULIN HUM LISPRO 100 UN/ML 3 ML VIAL SUBQ PRN ×2 (07:38→11:51)
[2018-08-27] MEDS: metFORMIN HCL 500 MG TAB PO SCH (07:38)
[2018-08-27] MEDS: ENOXAPARIN 40 MG/0.4ML SYR SC SCH (09:33)
[2018-08-27] MEDS: glipiZIDE 5 MG TAB PO SCH (09:34)
[2018-08-27] MEDS: DOCUSATE SODIUM 100 MG CAP PO SCH (09:34)
[2018-08-27] MEDS: PRAZOSIN HCL 1 MG CAP PO SCH (09:34)
[2018-08-27] MEDS: CITALOPRAM HYDROBROM 20 MG TAB PO SCH (09:34)
[2018-08-27] MEDS: GABAPENTIN(*) 300 MG CAP 600 MG, GABAPENTIN(*) 100 MG CAP 200 MG PO SCH (09:34)
[2018-08-27] MEDS: TOPIRAMATE 25 MG TAB PO SCH (09:35)
[2018-08-27] MEDS: FUROSEMIDE 40 MG TAB PO SCH (09:35)
[2018-08-27] MEDS: methylPREDNIS SUCC 125 MG/2ML IVP SCH (09:36)
--- NOTE | 2018-08-27 10:01 | Hospitalist Progress Note ---
Subjective Progress Notes Subjective He reports doing well. He is tolerating BiPAP fairly well. He has started to mobilize. It sounds like he was not doing much at home in the past few months. Physical Exam Vital Signs Date Time Temp Pulse Resp B/P (MAP) Pulse Ox O2 Delivery O2 Flow Rate FiO2 08/27/18 05:28 66 16 08/27/18 05:23 96 Nasal Cannula 3.0 08/27/18 04:37 98.0 135/85 (102) 40.0 Intake and Output 08/27/18 07:00 Intake Total 930 ml Output Total 1775 ml Balance -845 ml Intake Oral 930 ml Output Urine Total 1775 ml # Voids 1 # Bowel Movements 1 General Appearance: Alert, Awake Cardiovascular: Regular Rate and Rhythm Respiratory: Other (fairly clear/diminished breath sounds bilaterally) GI: Soft and Non-Tender (obese) Extremities: Warm, Perfused Result Diagram: 08/27/1853208/27/18532 Assessment and Plan Problems: (1) Hypercapnic respiratory failure Status: Acute Assessment & Plan: He most likely has fairly significant CELESTE/hypoventilation syndrome with acute hypercapnic respiratory failure. He has responded well to the BiPAP. His chest x-ray was negative for infiltrate. He was started on empiric treatment with IV steroids and cefepime. We did stop the cefepime yesterday and continued to wean steroids as his wheezing has improved. His ABG showed a pH of 7.38 yesterday with pCO2 of 52, which is likely his baseline. PT/OT have been working with him. He has started to mobilize. (2) DVT (deep venous thrombosis) Status: Chronic Assessment & Plan: He is on chronic warfarin therapy. Daily INR monitoring has been ordered. He is slightly sub-therapeutic, but refused a Lovenox bridge. (3) Type 2 diabetes mellitus Status: Chronic Assessment & Plan: He has been managed with metformin and glipizide. Those medications were restarted 08/24/18. He is also on sliding scale level #2. (4) CELESTE (obstructive sleep apnea) Status: Chronic Assessment & Plan: [facility], but he has never used it. He is tolerating BiPAP well here at 18/7cm H2O pressure. He will definitely need to continue on BiPAP at discharge. It appears his daughter has been able to purchase a BiPAP. Will check to make sure it is functional and able to provide appropriate therapy. He will most likely need to have sleep [facility]" [facility]. (5) Tobacco dependence Status: Chronic Assessment & Plan: Discussed need to stop smoking with the patient and his . They seem to understand very well. (6) HTN (hypertension) Status: Chronic Assessment & Plan: He has been managed with lisinopril (not on med reconciliation), which is currently on hold. His BPs have been acceptable. (7) Seizure disorder Assessment & Plan: He is on chronic treatment with Topamax, which has been restarted. Exam Sepsis Risk: No Definite Risk Problem Qualifiers (1) Hypercapnic respiratory failure: Chronicity: acute on chronic Qualified Codes: J96.22 - Acute and chronic respiratory failure with hypercapnia SUZANNE CHUN MD Aug 27, 2018 10:01
[2018-08-27] MEDS ORDERED: PRED-420 PO (10:37)
--- NOTE | 2018-08-27 10:47 | Hospitalist Depart ---
Discharge Summary Reason for Hosp/Final Diag: (1) Hypercapnic respiratory failure Status: Acute Hospital Course & Plan: He most likely had significant CELESTE/hypoventilation syndrome with acute hypercapnic respiratory failure. He responded well to starting BiPAP. His chest x-ray was negative for infiltrate. He was started on empiric treatment with IV steroids and cefepime. We did stop the cefepime as it did not appear he had an acute infectious process. We continued to wean steroids and his respiratory status improved. His ABG on 08/26/18 showed a pH of 7.38 with pCO2 of 52, which is likely his baseline. PT/OT have been working with him. He started to mobilize and was tolerating low levels of activity without much difficulty. (2) CELESTE (obstructive sleep apnea) Status: Chronic Hospital Course & Plan: [facility], but he has never used it. At the time of admission, he was placed on auto-titrating BiPAP and tolerated it very well. It was found he was doing very well with BiPAP setting at ~18/7cm H2O pressure with additional oxygen bleed in (currently 3L). He will definitely need to continue on BiPAP at discharge. It appears his daughter was able to obtain a BiPAP machine that he will be able to use at least temporarily. We did check to make sure it was functional and able to provide appropriate therapy. He was advised he will need to make sure the machine and tubing is cleaned regularly. He will most likely need to have the sleep studies "re-done" through [place] system once again. He understands he will need to follow up very closely with Dr. Delgado to get this arranged in the very near future. (3) DVT (deep venous thrombosis) Status: Chronic Hospital Course & Plan: He is on chronic warfarin therapy. His INR is slightly sub-therapeutic, but refused a Lovenox bridge. At the time of discharge his INR is 1.62. He will need close follow up with Dr. Delgado regarding monitoring his anticoagulation therapy. (4) Type 2 diabetes mellitus Status: Chronic Hospital Course & Plan: He has been managed with metformin and glipizide. Those medications were restarted 08/24/18. He was also on sliding scale level #2 during his admission. (5) Tobacco dependence Status: Chronic Hospital Course & Plan: Discussed need to stop smoking with the patient and his . They seem to understand very well. (6) HTN (hypertension) Status: Chronic Hospital Course & Plan: Apparently, he has been managed with lisinopril (not on med reconciliation). We did not restart this. His BPs have been acceptable. He will need to follow up with Dr. Delgado to monitor. (7) Seizure disorder Hospital Course & Plan: He is on chronic treatment with Topamax. No changes. Departure Weight (Pounds): 333 Weight (Ounces): 7.0 Result Diagram: 08/27/1853208/27/18532 Item Value Date Time White Blood Count 10.5 k/uL 08/23/182135 Hemoglobin 14.2 g/dL 08/23/182135 Hematocrit 43.6 % 08/23/182135 Platelet Count 248 K/uL 08/23/182135 Blood Gas Puncture Site Right radial 08/23/182149 Blood Gas Patient Temperature 98.7 DEGREES 08/23/18 2150 Arterial Blood pH 7.25 L 08/23/18 215 Arterial Blood Partial Pressure CO2 70 mmHg *H 08/23/18 215 Arterial Blood Partial Pressure O2 123 mmHg *H 08/23/182149 Arterial Blood HCO3 31 mmol/L H 08/23/182149 Arterial Blood Oxygen Saturation 98 % 08/23/182149 Arterial Blood Base Excess 4.0 mmol/L 08/23/182149 Rey Test Acceptable 08/23/182149 Oxygen Liters/Minute 10 l 08/23/182149 Blood Gas Puncture Site Left radial 08/26/18752 Blood Gas Patient Temperature 36.3 DEGREES 08/26/18 0753 Arterial Blood pH 7.38 08/26/18 0753 Arterial Blood Partial Pressure CO2 52 mmHg *H 08/26/18752 Arterial Blood Partial Pressure O2 69 mmHg 08/26/18 0753 Arterial Blood HCO3 31 mmol/L H 08/26/18 075 Arterial Blood Base Excess 6.0 mmol/L 08/26/18 075 Arterial Blood Oxygen Saturation 93 % 08/26/18 0753 Rey Test Acceptable 08/26/18 0753 Oxygen Liters/Minute 33 08/26/183 Prothrombin Time 22.2 seconds H 08/23/18 2136 Prothromb Time International Ratio 1.91 08/23/18 2136 Activated Partial Thromboplast Time 41 seconds H 08/23/182135 Prothromb Time International Ratio 1.74 08/24/18 0459 Prothrombin Time 20.5 seconds H 08/24/18 0459 Prothrombin Time 18.8 seconds H 08/25/18 0514 Prothromb Time International Ratio 1.55 08/25/18 0514 Prothromb Time International Ratio 1.42 08/26/18 0526 Prothrombin Time 17.4 seconds H 08/26/18 0526 Prothrombin Time 19.4 seconds H 08/27/18 0533 Prothromb Time International Ratio 1.62 08/27/18 0533 Sodium Level 134 mmol/L L 08/23/182135 Potassium Level 4.6 mmol/L 08/23/182135 Chloride Level 101 mmol/L 08/23/18 213 Carbon Dioxide Level 32 mmol/L H 08/23/182135 Blood Urea Nitrogen 14 mg/dl 08/23/18 213 Creatinine 1.00 mg/dl 08/23/182135 Glomerular Filtration Rate Calc > 60.0 08/23/18 213 Random Glucose 297 mg/dl H 08/23/18 2136 Lactate 1.2 mmol/L 08/23/18 2136 Calcium Level 9.2 mg/dl 08/23/182135 Total Bilirubin 0.2 mg/dl 08/23/182135 Aspartate Amino Transf (AST/SGOT) 18 U/L 08/23/18 213 Alanine Aminotransferase (ALT/SGPT) 29 U/L 08/23/182135 Troponin I < 0.012 ng/ml 08/23/182135 Alkaline Phosphatase 88 U/L 08/23/182135 Total Protein 7.0 g/dl 08/23/182135 Albumin 3.8 g/dl 08/23/182135 Acetone, Qualitative Negative 08/23/182135 Urine Mucus None /HPF 08/23/180 Urine Hyaline Casts Few /LPF 08/23/180 Urine Bacteria Negative /HPF 08/23/180 Urine Squamous Epithelial Cells Few /LPF 08/23/18 2200 Urine WBC None /HPF 08/23/18 2200 Urine RBC 1 /HPF 08/23/180 Urine Leukocyte Esterase Negative 08/23/182199 Urine Urobilinogen Negative mg/dL 08/23/182199 Urine Bilirubin Negative 08/23/182199 Urine Nitrite Negative 08/23/182199 Urine Blood Negative 08/23/182199 Urine Ketones Negative mg/dL 08/23/182199 Urine Glucose (UA) 50 mg/dL H 08/23/182199 Urine Protein Negative mg/dL 08/23/182199 Urine Specific [place] 1.012 08/23/182199 Urine pH 6.0 pH 08/23/182199 Urine Clarity Clear 08/23/182199 Urine Color Yellow 08/23/182199 Influenza Virus Type B (PCR) Negative 08/23/182212 Influenza Virus Type A (PCR) Negative 08/23/182212 [facility] *LIVE* [address] [place] [address] RUBI CAMPBELL M.D., DIRECTOR OF LABORATORY SERVICES YULIA BLUM M.D., PATHOLOGIST RUN DATE: 08/25/18 Specimen Inquiry Report PAGE 1 RUN TIME: 0939 PATIENT: REINALDO KENNEDY ACCT: [id number] LOC: ICU U: [id number] AGE/SX: 72/M ROOM: 2260 RE08/23/[address]: SUZANNE CHUN MD : 1945 BED: 260 DIS : STATUS: ADM IN TLOC: SPEC #: [id number] COLIN: 08/23/18 STATUS: COMP REQ #: [id number] RECD: 08/23/[address]: TRINH SWAN DO SOURCE: CCMS ENTR: 08/23/[address]: CORNEL DELGADO DO [facility]: ORDERED: CULT URINE Procedure Result Verified URINE CULTURE Final 08/25/18-938 No growth [facility] *LIVE* [address] [place] [address] RUBI CAMPBELL M.D., DIRECTOR OF LABORATORY SERVICES YULIA BLUM M.D., PATHOLOGIST RUN DATE: 08/27/18 Specimen Inquiry Report PAGE 1 RUN TIME: 1000 PATIENT: REINALDO KENNEDY ACCT: [id number] LOC: [facility] U: [id number] AGE/SX: 72/M ROOM: 2274 RE08/23/[address]: SUZANNE CHUN MD : 1945 BED: 274 DIS: STATUS: ADM IN TLOC: SPEC #: [id number] COLIN: 08/23/18 STATUS: RES REQ #: [id number] RECD: 08/23/[address]: TRINH SWAN DO SOURCE: BLOOD PER ENTR: 08/23/[address]: CORNEL DELGADO DO [facility]: ORDERED: CULT BLOOD Procedure Result Verified BLOOD CULTURE Preliminary 08/27/18-1000 NO GROWTH AFTER 4 DAYS, REINCUBATED [facility] *LIVE* [address] [place] [address] RUBI CAMPBELL M.D., DIRECTOR OF LABORATORY SERVICES YULIA BLUM M.D., PATHOLOGIST RUN DATE: 08/27/18 Specimen Inquiry Report PAGE 1 RUN TIME: 1000 PATIENT: KENNEDYREINALDO [place] ACCT: [id number] LOC: MED U: [id number] AGE/SX: 72/M ROOM: [facility] RE08/23/[address]: SUZANNE CHUN MD : 1945 BED: 274 DIS: STATUS: ADM IN TLOC: SPEC #: [id number] COLIN: 08/23/18 STATUS: RES REQ #: [id number] RECD: 08/23/[address]: TRINH SWAN DO SOURCE: BLOOD PER ENTR: 08/23/[address] [facility] [address]: CORNEL DELGADO DO [facility]: ORDERED: CULT BLOOD Procedure Result Verified BLOOD CULTURE Preliminary 08/27/18-1000 NO GROWTH AFTER 4 DAYS, REINCUBATED ----- ------- Imaging PATIENT NAME: Reinaldo Kennedy : 1945 MR: [id number] V: [id number] EXAM DATE: [id number] ORDERING PHYSICIAN: TRINH SWAN TECHNOLOGIST: Location: [facility] Patient: Reinaldo Kennedy : 1945 Visit/Account:[id number] Date of Sevice: 08/23/2018 CHEST SINGLE AP Indication: Shortness of breath.. Comparison: CT chest on 07/01/2017. Findings: Cardiac silhouette is upper limits normal for size and inspiration. The mediastinal silhouette and pulmonary vessels within normal limits. There appears to be some mild prominent pericardial fat as seen on the CT scan. Scarring seen in the right lower lobe. No focal areas of consolidation. No pneumothorax or pleural effusion. No nodule. Upper abdomen is unremarkable with eventration right hemidiaphragm. No acute bony abnormality. IMPRESSION: 1. No acute cardiopulmonary process. Report Dictated By: Daniel Loyola at 08/23/2018 9:52 PM Report E-Signed By: Daniel Loyola at 08/23/2018 9:55 PM WSN:[id number] PATIENT NAME: Reinaldo Kennedy : 1945 MR: [id number] V: [id number] EXAM DATE: ORDERING PHYSICIAN: SUZANNE CHUN TECHNOLOGIST: Location: [facility] Patient: Reinaldo Kennedy : 1945 Visit/Account:[id number] Date of Sevice: 08/24/2018 EXAMINATION: Portable AP Chest 08/24/2018 7:00 AM HISTORY: respiratory failure COMPARISON: 08/23/2018 FINDINGS: Cardiomediastinal contours: Stable heart size. Atherosclerotic aorta. Likely granulomatous hilar calcifications. Lungs and pleura: Stable vascular and reticular markings. Stable thickening along the right minor fissure. No definite effusion. Bones/soft tissues: Stable elevation right hemidiaphragm. Cardiac leads are present. IMPRESSION: Essentially stable portable chest. Report Dictated By: Anish Styles MD at 08/24/2018 7:26 AM Report E-Signed By: Anish Styles MD at 08/24/2018 7:27 AM WSN:[id number] EKG PATIENT NAME: REINALDO KENNEDY : [id number] MR: [id number] V: [id number] EXAM DATE: ORDERING PHYSICIAN: TRINH SWAN TECHNOLOGIST: LANI Test Reason : SOB Blood Pressure : / mmHG Vent. Rate : 096 BPM Atrial Rate : 096 BPM P-R Int : 172 ms QRS Dur : 100 ms QT Int : 364 ms P-R-T Axes : 014 078 036 degrees QTc Int : 459 ms Sinus rhythm Nonspecific interventricular conduction delay Artifact in several leads - repeat if needed Borderline ECG No previous ECGs available Confirmed by SUZANNE CHUN ([id number]) on 08/23/2018 10:10:13 PM Referred By: Confirmed By:SUZANNE CHUN Condition: Improved Discharge: Home, Home Health PT/OT Follow Up For: PT For Strengthening, OT For ADL's, PT Evaluation and Treat, OT Evaluation and Treat Home Health RN Follow Up For: Nursing Assessment Follow-Up Labs: INR (with Dr. Delgado on Wednesday08/29/18 or Wednesday08/30/18.) Time Spent: > 30 min Discharge Instructions Home Meds Active Scripts Prednisone 10 Mg Tab (PREDNISONE 10 MG TAB) 10 Mg Tab.ds.pk, 40 MG PO QDAY, #20 TAB 0 Refills Four tabs PO daily for two days, then three tabs daily for two days, then two tabs daily for two days, then one tab daily for two days, then off. Prov:SUZANNE CHUN MD 08/27/18 Reported Medications Topiramate (TOPIRAMATE) 50 Mg Tablet, 50 MG PO DAILY 08/24/18 Multivitamin With Minerals (MULTIPLE VITAMIN) 1 Each Tablet, 1 EACH PO DAILY, TAB 08/24/18 Calcium Carbonate (CALCIUM) Unknown Strength Tablet, PO DAILY 08/24/18 Magnesium Amino Acid Chelate (MAGNESIUM) Unknown Strength Tablet, PO DAILY 08/24/18 Cyanocobalamin (Vitamin B-12) (B-12) Unknown Strength Tablet, PO DAILY 08/24/18 Prazosin Hcl (PRAZOSIN HCL) 1 Mg Capsule, 3 MG PO QHS, CAPSULE Take 1 mg by mouth in the morning and 3 mg by mouth in the evening 08/24/18 Warfarin Sodium (WARFARIN SODIUM) 5 Mg Tablet, 10 MG PO SuTuSa, TAB 08/24/18 Warfarin Sodium (WARFARIN SODIUM) 5 Mg Tablet, 7.5 MG PO MoWeThFr, TAB Take 10 mg on , Wed, Wed, and 7.5mg the rest of the week 08/24/18 Furosemide (FUROSEMIDE) 40 Mg Tablet, 1 TAB PO DAILY, TAB 08/24/18 Colchicine/Probenecid (PROBENECID-COLCHICINE TABS) 1 Each Tablet, 1 EACH PO QHS 08/24/18 Atorvastatin Calcium (LIPITOR) 40 Mg Tablet, 1 TAB PO QHS, TAB 08/24/18 Docusate Sodium (COLACE) 100 Mg Capsule, 100 MG PO BID, CAPSULE 08/24/18 Citalopram Hydrobromide (CELEXA) 40 Mg Tablet, 40 MG PO QDAY, TAB 08/24/18 Prazosin Hcl (PRAZOSIN HCL) 1 Mg Capsule, 1 MG PO QAM, CAPSULE Take 1 mg by mouth in the morning and 3 mg by mouth in the evening 08/24/18 Metformin Hcl (METFORMIN HCL) 1,000 Mg Tablet, 1 TAB PO BID, TAB 08/24/18 Gabapentin (NEURONTIN) 400 Mg Capsule, 800 MG PO BID, CAPSULE 08/24/18 Glipizide (GLIPIZIDE) 5 Mg Tablet, 2.5 MG PO QAM 08/24/18 Discontinued Reported Medications Spironolactone (SPIRONOLACTONE) 25 Mg Tablet, 25 MG PO QAM, TAB 08/24/18 Cephalexin Monohydrate (Keflex) 250 Mg Cap, 250 MG PO QID, #20 0 Refills 03/14/11 Colchicine (Colchicine) 0.6 Mg Tab, 0.6 MG PO QDAY, #20 0 Refills 03/14/11 [place]-3 Fatty Acids (Fish Oil) 1 Cap Capsule, 1 CAP PO, 0 Refills 03/14/11 Furosemide (Lasix) 20 Mg Tablet, 20 MG PO QDAY, 0 Refills 03/14/11 Acetaminophen (Acetaminophen Pain Relief) 500 Mg Tablet, 500 MG PO PRN 03/14/11 Warfarin Sod (Coumadin (Or Equiv)) 5 Mg Tab, 7 MG PO 7.5 MG 6 DAYS A WEEK. 5 MG WEDS 03/14/11 Citalopram Hydrobromide (Celexa) 20 Mg Tab, 40 MG PO 1/2 TAB IN MORNING AND EVENING 03/14/11 Lisinopril (Prinivil) 20 Mg Tab, 20 MG PO QDAY, #20 0 Refills 03/14/11 Metformin Hcl (Glucophage) 1,000 Mg Tablet, 1000 MG PO QDAY 03/14/11 Simvastatin (Zocor) 80 Mg Tablet, 40 MG PO QHS 03/14/11 Topiramate (Topamax) 25 Mg Tablet, 50 MG PO BID 2 TABS TWICE DAILY 03/14/11 Diet: Diabetic Activity: As Tolerated (with oxygen on), No Exertion Special Instructions: Continue home oxygen at 2-3L during the day and 3L bleed in with BiPAP with sleep and all naps. BiPAP at 18/8cm H2O pressure with 3L oxygen bleed in. Follow up with Dr. Delgado for Protime/INR on Wednesday or Wednesday (08/29-) and an appointment in next 5-7 days. Copies to: CORNEL DELGADO DO ; Venous Thromboembolism Antithrombotics Is Pt On Any Antithrombotics?: Yes [id number] Certification Face to Face Home Health Certification Institutional Provider conducted the [id number] encounter. Electronic Undersigning Physician Certifies Home Health. I certify that the patient has been under my care and that I had a [id number] encounter that meets the physician [id number] encounter requirements with this patient. This patient is home-bound due to safety issues and continues to require assistance with ADL's. I certify that based on my findings, that Nursing, Aides and the following Home Health services are medically necessary: PT, OT, nursing. Medical Necessity: Nursing, Rehab Date Face to Face Conducted: Aug 27, 2018 Problem Qualifiers (1) Hypercapnic respiratory failure: Chronicity: acute on chronic Qualified Codes: J96.22 - Acute and chronic respiratory failure with hypercapnia SUZANNE CHUN MD Aug 27, 2018 10:47
--- NOTE | 2018-08-27 12:40 | NUR ---
Physical Therapy Impression Pt. ambulated x100' with RW and SBA. His O2 stats remained above 94% while on 3L O2. Pt. has met his goals and is planning to d/c home today. Physical Therapy Goals 1. Pt to be Mod indep/SBA for bed mobility and supine to/from sit transfers 2. Pt to be Mod indep/SBA for sit to/from stand transfers with least restrictive device 3. Pt to ambulate x 100' with least restrictive device and SBA/CGA with VS in safe range throughout. Patient's Goals
[2018-08-27] MEDS ORDERED: WARFARIN SOD 10 MG TAB PO SCH (13:00)
== END 2018-08-27 14:20 | disposition home health service (06) | DRG 189 ==
LOC: ER 21:28 → ICU 22:46 → MED 08-26 13:30
PROVIDERS: ADMIT Internal Medicine; ATTEND Internal Medicine
PROC: 5A09357 Assistance with Respiratory Ventilation, Less than 24 Consecutive Hours, Continuous Positive Airway Pressure (ICD-10-PCS; principal; 2018-08-23)
DX: J96.22 Acute and chronic respiratory failure with hypercapnia (principal); J44.1 Chronic obstructive pulmonary disease with (acute) exacerbation; J96.21 Acute and chronic respiratory failure with hypoxia; G47.36 Sleep related hypoventilation in conditions classified elsewhere; F17.210 Nicotine dependence, cigarettes, uncomplicated; I10 Essential (primary) hypertension; G40.909 Epilepsy, unspecified, not intractable, without status epilepticus; E11.9 Type 2 diabetes mellitus without complications; J98.4 Other disorders of lung; Z86.711 Personal history of pulmonary embolism; Z86.718 Personal history of other venous thrombosis and embolism; Z79.01 Long term (current) use of anticoagulants; Z79.84 Long term (current) use of oral hypoglycemic drugs
CPT/HCPCS: 36415; 36416; 36600; 71045; 81001; 82009; 82040; 82247; 82310; 82374; 82435; 82565; 82803; 82947; 82948; 83605; 83930; 84075; 84132; 84155; 84295; 84450; 84460; 84484; 84520; 85025; 85610; 85730; 87040; 87088; 87502; 93005; 93306; 94640; 94660; 96361; 96365; 96375; 97161; 97165; 99285; C1758; J0131; J0692; J1650; J1815; J2930; J7030; J7050; Q9967

== ENCOUNTER → 2018-08-23 | Outpatient (CLI) | payer MEDICARE ==
[~2018-08-23] MED LIST: ACET1TAB PO; ATOR40TA24 PO; CALC500T6 PO; CEP250 PO; CIT20 PO; CITA-157 PO; COL0.6 PO; COLC1TAB5 PO; CYAN100017 PO; DAR100 PO; DOCU-416 PO; FISH OIL1 CAP PO; FURO-43 PO; FURO-47 PO; GABA-492 PO; GLIP-152 PO; LIS20 PO; MAGN27TA6 PO; METF-420 PO; METF-452 PO; MULT-1335 PO; PER PO; PRAZ1CAP26 PO; PRED-420 PO; SIMV-1 PO; SPIR25TA80 PO; TOPI25TA PO; TOPI50TA92 PO; WAR5 PO; WARF5TAB23 PO; [UNRECOGNIZED DRUG - CODE] PO
[2018-08-24 11:54] VITALS: BMI 41.6
== END ==
LOC: AMB 20:51
PROVIDERS: ATTEND Nurse Practitioner
DX: R06.00 Dyspnea, unspecified (principal); R09.02 Hypoxemia; R53.1 Weakness; E11.9 Type 2 diabetes mellitus without complications
CPT/HCPCS: A0425; A0427